=== PATIENT | female | born 1995 | race Caucasian/White ===

== ENCOUNTER 2017-04-22 00:13 | Inpatient (IN) | payer BC, OTHER ==
[~2017-04-22 00:13] MED LIST: BUTORPHANOL TARTRATE 2 MG/ML VIAL IV PRN; LIDOCAINE HCL 50 ML VIAL PERI PRN; ONDANSETRON HCL/PF 2 MG/ML VIAL IV PRN; OXYTOCIN/DEXTROSE 5%-WATER 30 UNITS/500 ML BAG IV ONE; RINGER'S SOLUTION,LACTATED 1,000 ML IV ONE
[2017-04-22 00:48] LABS: Hematocrit 36.6 % (37.0-47.0); Hemoglobin 12.4 gm/dL (12.5-16.0); Mean Cell Volume 86.1 fl (78-100); Mean Corpuscular Hemoglobin 29.2 pg (27-31); Mean Corpuscular Hgb Conc 33.9 g/dl (32-36); Mean Platelet Volume 12.2 fl (6.0-9.5); Neutrophil # 9.6 K/mm3 (1.3-6.0); Neutrophil % 71.6 % (42-75.0); Platelet Count 178 K/mm3 (150-450); Red Blood Count 4.25 M/mm3 (4.2-5.4); White Blood Count 13.5 K/mm3 (4.0-10.5)
[2017-04-22] MEDS: RINGER'S SOLUTION,LACTATED 1,000 ML IV PRN ×2 (00:51→20:57)
[2017-04-22 00:54] LABS: Urine Bilirubin Negative (NEGATIVE); Urine Blood Negative /ul (NEGATIVE); Urine Ketone Negative (NEGATIVE); Urine Nitrite Negative (NEGATIVE); Urine Protein Negative (NEGATIVE); Urine Specific Gravity <=1.005 SP.GR. (1.005-1.010); Urine Urobilinogen Normal (NORMAL)
[2017-04-22] MEDS: MISOPROSTOL 100 MCG TABLET VG PRN ×2 (00:55→05:01)
[2017-04-22 01:03] LABS: Cocaine Ur Negative (NEGATIVE); Urine Barbiturate Negative (NEGATIVE); Urine Benzodiazepines Negative (NEGATIVE); Urine Opiates Negative (NEGATIVE); Urine PCP Negative (NEGATIVE); Urine THC Negative (NEGATIVE)
[2017-04-22 01:10] LABS: Urine Appearance Clear; Urine Bacteria 1+; Urine Color Pale Yellow; Urine RBC 0-5 /hpf (0-5); Urine WBC 0-5 /hpf (0-5)
--- NOTE | 2017-04-22 10:26 | PN ---
Subjective - Date and Time Seen Date: 04/22/17 Subjective Narrative: labor note at 39 w, admitted for induction of labor at term with history of demise at 35 w. GBS negative. dilated to 1 cm in office. s/p cytotec x 2 overnight. cervix now: 2-3 cm, 50% and -3 FHR: reassuring. [place]: irregular contractions. bedside u/s: cephalic, posterior fundal placenta. Plan: will start pitocin for induction/augmentation. Serina Valentin MD Objective - Vitals Vitals: Last Vital Signs Temp 36.4 C L 05/26/16 17:16 Pulse Resp BP 110/62 04/07/17 21:45 Pulse Ox - Abnormal Lab Findings Abnormal Lab Findings: Abnormal Lab Results 04/22/17 04/22/17 Range/Units 00:30 00:40 WBC 13.5 H (4.0-10.5) K/mm3 Hgb 12.4 L (12.5-16.0) gm/dL Hct 36.6 L (37.0-47.0) % MPV 12.2 H (6.0-9.5) fl Immature Gran % (Auto) 0.50 H (0.001-0.429) % Immature Gran # (Auto) 0.07 H (0.000-0.0310) K/mm3 Lymphocytes % 18.2 L (20-51) % Neutrophils # 9.6 H (1.3-6.0) K/mm3 Monocytes # 1.1 H (0.0-1.0) k/mm3 Ur Leukocyte Esterase 100 H (NEGATIVE) /ul Urine Bacteria 1+ H (NONE)
[2017-04-23] MEDS: RINGER'S SOLUTION,LACTATED 1,000 ML IV PRN ×3 (03:20→13:18)
[2017-04-23] MEDS ORDERED: MISOPROSTOL 100 MCG TABLET VG ONE (08:52)
[2017-04-23] MEDS ORDERED: OXYTOCIN/DEXTROSE 5%-WATER 30 UNITS/500 ML BAG IV ONE ×2 (09:30→21:37)
[2017-04-23] MEDS ORDERED: NALOXONE HCL 1 MG/1 ML SYRG IV PRN (12:32)
[2017-04-23] MEDS ORDERED: ONDANSETRON HCL/PF 2 MG/ML VIAL IV PRN (12:32)
[2017-04-23] MEDS ORDERED: BUPIVACAINE HCL/0.9 % NACL/PF 250 ML EP PRN (12:32)
[2017-04-23] MEDS ORDERED: BUPIVACAINE HCL/PF 30 ML VIAL EP SCH (12:45)
--- NOTE | 2017-04-23 13:07 | OR ---
Anesthesia Procedure Note - Anesthesia Procedure Note Date of Service: 04/23/17 Narrative: Vital Signs - Last Taken Temp 37 C 04/23/17 13:02 Pulse 67 04/23/17 13:02 Resp 18 04/23/17 13:02 BP 124/65 04/23/17 13:02 Pulse Ox 98 04/23/17 13:02 04/23/17 13:06 ANESTHESIA PROCEDURE NOTE Date of Procedure: 04/23/2017. Time of procedure: 1240. Performed by: Connor Mcdaniel CRNA Licensed Investment Sales Assistant: None. Preprocedure diagnosis: Active labor. Post procedure diagnosis: Same. Procedure: Insertion of labor epidural. Indications: The patient is a 21 -year-old female in active labor requesting labor epidural for pain management. Findings: See below. Details of the procedure: The patient was placed in a sitting position. DuraPrep as well as Betadine swabs X3 was applied to the patient's back. Patient was then draped in a sterile fashion. Lidocaine 1% was infiltrated to the skin and subcutaneous tissues at the level of the L3-4 interspace. The epidural space was identified using a 18-gauge Tuohy needle with loss-of- resistance technique. Epidural catheter was inserted to a depth of 11 centimeters at skin. Negative test dose was elicited using 3 mL of 1.5% preservative-free lidocaine plus epinephrine 1 200,000. The epidural catheter was then taped and secured in place. A loading dose of 8 mL of 0.25% preservative-free bupivacaine was administered to the epidural catheter after negative aspiration for blood and CSF. EBL: Minimal. Fluids: N/A. Specimen: N/A. Post procedure condition: The patient tolerated the procedure well. No complications were noted. Thank you for this consultation. Connor Mcdaniel CRNA
--- NOTE | 2017-04-23 16:33 | PN ---
Progess Note - Interim Narrative: 04/23/17 16:31 Comfortable, feeling pressure SVE: /-3 FHTs: 130's, mod zita, no decels, + accels [place]: q2-5 min Continue increasing pitocin, anticipate
[2017-04-23] MEDS ORDERED: GLYCERIN/WITCH HAZEL LEAF 40 APPL BOX TP PRN (21:37)
[2017-04-23] MEDS ORDERED: oxyCODONE HCL/ACETAMINOPHEN 1 TAB TABLET PO PRN ×2 (21:37)
[2017-04-23] MEDS ORDERED: HYDROCORTISONE 30 APPL TUBE TP PRN (21:37)
[2017-04-23] MEDS ORDERED: SENNOSIDES 8.6 MG TABLET PO PRN (21:37)
[2017-04-23] MEDS ORDERED: BISACODYL 10 MG SUPP.RECT RC PRN (21:37)
[2017-04-23] MEDS ORDERED: BENZOCAINE/MENTHOL 81 SPRAY CAN TP PRN (21:37)
--- NOTE | 2017-04-23 21:42 | OR ---
Operative Report - Dictated Report Narrative: Spontaneous Vaginal Delivery Viable female with APGARS of 9 at 1 minute and 9 at 5 minutes. She delivered at 2118. Presentation was direct OA. A nuchal cord was noted and reduced over the baby' s head. The posterior arm delivered spontaneously followed by the anterior right shoulder with gentle downward traction. The remainder of the baby delivered easily and was placed on the maternal abdomen. The baby was dried and stimulated and the cord was clamped and cut after approximately 60 seconds. Weight: 7 pounds 1.4 ounces or 3215 g Placenta was delivered spontaneously and intact. Bilateral periurethral abrasions noted that were hemostatic without repair. Estimated blood loss: 100 ml Mother and baby tolerated delivery well. History for Definition: * The number of deliveries resulting in a live the patient experienced prior to current hospitalization * The previous delivery of live twins or any live multiple gestation is considered one live event. *If primagravida or nulliparous is documented select zero for the number of previous live births. Live Events: 1
[2017-04-23] MEDS ORDERED: FLU VACC QS2017-18(6MOS UP)/PF 60 MCG/0.5 ML SYRINGE IM ONE (22:11)
[2017-04-23] MEDS ORDERED: RHO(D) IMMUNE GLOBULIN 300 MCG DISP.SYRIN IM ONE (23:29)
[2017-04-24] MEDS ORDERED: RHO(D) IMMUNE GLOBULIN 300 MCG DISP.SYRIN IM ONE (01:28)
[2017-04-24] MEDS ORDERED: FLU VACC QS2017-18(6MOS UP)/PF 60 MCG/0.5 ML SYRINGE IM ONE (07:13)
[2017-04-24] MEDS: IBUPROFEN 800 MG TABLET PO PRN ×2 (07:18→19:32)
--- NOTE | 2017-04-24 08:44 | PN ---
Progess Note - Interim Narrative: 04/24/17 08:40 progress note Subjective: The patient is doing well. She is ambulating, voiding, tolerating by mouth. She has minimal pain and moderate lochia. Objective: General: No acute distress Abdomen: Soft, nontender, fundus is firm just below the umbilicus Extremities: minimal edema, nontender to palpation Assessment and plan: day 1 Feeding: breast Pain: Controlled with by mouth medication control: OCP Routine care.
[2017-04-24] MEDS: DOCUSATE SODIUM 100 MG CAPSULE PO SCH ×2 (09:03→21:06)
--- NOTE | 2017-04-25 07:51 | PN ---
Progess Note - Interim Narrative: 04/25/17 07:40 progress note Subjective: The patient is doing well. She is ambulating, voiding, tolerating by mouth. She has minimal pain and moderate lochia. Objective: General: No acute distress Abdomen: Soft, nontender, fundus is firm just below the umbilicus Extremities: minimal edema, nontender to palpation Assessment and plan: day 2 Feeding: Breast Pain: Controlled with by mouth medication control: OCPs Routine care.
[2017-04-25 08:20] VITALS: BP 135/69
[2017-04-25] MEDS: DOCUSATE SODIUM 100 MG CAPSULE PO SCH (10:01)
[2017-04-25] MEDS: IBUPROFEN 800 MG TABLET PO PRN (14:14)
== END 2017-04-25 14:30 | disposition home or self-care (01) | DRG 775 ==
LOC: OB 00:13
PROVIDERS: ADMIT Obstetrics & Gynecology; ATTEND Obstetrics & Gynecology
PROC: 10E0XZZ Delivery of Products of Conception, External Approach (ICD-10-PCS; principal; 2017-04-23)
PROC: 4A1HXCZ Monitoring of Products of Conception, Cardiac Rate, External Approach (ICD-10-PCS; 2017-04-23)
DX: O69.81X0 Labor and delivery complicated by cord around neck, without compression, not applicable or unspecified (principal); Z3A.39 39 weeks gestation of pregnancy; Z37.0 Single live birth; Z23 Encounter for immunization; Z87.59 Personal history of other complications of pregnancy, childbirth and the puerperium
CPT/HCPCS: 36415; 59025; 80307; 81001; 85025; 85460; 86850; 86900; 90686; G0008; J2790

== ENCOUNTER 2020-09-05 06:17 | Inpatient (IN) ==
[2020-09-05] MEDS ORDERED: RINGER'S SOLUTION,LACTATED 1,000 ML IV ONE (07:00)
[2020-09-05] MEDS ORDERED: BUTORPHANOL TARTRATE 2 MG/ML VIAL IV PRN ×2 (07:00)
[2020-09-05] MEDS ORDERED: ONDANSETRON 4 MG TAB.RAPDIS PO PRN (07:00)
[2020-09-05] MEDS ORDERED: LIDOCAINE HCL 50 ML VIAL PERI PRN (07:00)
[2020-09-05] MEDS ORDERED: OXYTOCIN/0.9 % SODIUM CHLORIDE 30 UNITS/500 ML BAG IV ONE (07:00)
[2020-09-05] MEDS: MISOPROSTOL 100 MCG TABLET VG PRN ×3 (07:09→22:46)
--- NOTE | 2020-09-05 08:20 | HP ---
Chief Complaint - Chief Complaint Date of Service: 09/05/20 Time of Service: 08:13 Chief Complaint: Medical IOL History of Present Illness: 24 year old at 37w 0d who presents to L&D for a medical IOL. She denies ctx, vb or lof. Fetus is active. Medical History (Last Reviewed 09/05/20 @ 08:16 by Regina Espinosa MD) History of chlamydia infection Onset Date: ~2010 History of stillbirth Onset Date: ~2014 35 weeks, placental insufficiency Surgical History: Surgical History (Last Reviewed 09/05/20 @ 08:16 by Regina Espinosa MD) No pertinent past surgical history Family History: Family History (Last Reviewed 09/05/20 @ 08:16 by Regina Espinosa MD) Mother Asthma Hypertension Father Alive and well Social History: (Last Reviewed 09/05/20 @ 08:16 by Regina Espinosa MD) Social History: adopted: No Marital status: Single household members: children current occupational status: employed current occupation: retail marketing coordinator current occupational exposures/hazards: No Highest level of school completed/degree received: high school graduate Service: No Tobacco: Smoking Status: Current every day smoker tobacco type: cigarettes Smoking cigarettes per day: 10 Years smoked: 7 Smoking pack-years: 3.50 Alcohol: alcohol intake: never Substance Use: substance use type: 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, THC last used 4-5 mos ago Dietary Habits: caffeine: Yes caffeine comment: 40 oz Type: carbonated beverages Review Of Systems (GEN) - Review of Systems Generalized/Overall Review: Present: No Symptoms Reported Misc: All systems neg except as marked Immunizations: IMMUNIZATION HX Immunizations Up to Date Yes History of Influenza Vaccine No Allergies/Adverse Reactions: Allergies Allergy/AdvReac Type Severity Reaction Status Date / Time No Known Allergies Allergy Verified 09/01/20 14:10 Home Medications: HOME MEDICATIONS vit,calcium no.40-iron fum 27 mg iron-folate no.1 1 mg tablet 1 tab PO DAILY #90 tab 02/16/20 [Last Taken Unknown] ferrous sulfate 325 mg (65 mg iron) tablet 325 mg PO DAILY 07/18/20 [Last Taken Unknown] Exam - Exam Vital Signs: Vital Signs - Last Taken Temp 36.7 C 09/05/20 06:20 Pulse 100 09/05/20 06:20 Resp 20 09/05/20 06:20 BP 125/79 09/05/20 06:20 Pulse Ox 96 09/05/20 06:20 Constitutional: Present: Alert, Oriented x3, Cooperative, No distress ENT Exam: Present: hearing grossly normal Eye Exam: bilateral eye: normal inspection Neck: Present: normal inspection Respiratory: Present: lungs clear, normal breath sounds, no respiratory distress Cardiovascular/Chest: Present: regular rate, rhythm Abdomen: Present: soft, nontender, nondistended /Rectal: Present: Exam deferred Extremity: Present: non-tender, no calf tenderness Skin Exam: Present: normal color, warm/dry, no cyanosis Neurologic: Present: alert, normal mood/affect, oriented x 3 Appearance: Present: appropriate appearance, appropriate insight, neat, no memory impairment Eye contact: Present: cooperative, good eye contact, normal speech Thoughts: Present: normal thought pattern Assessment/Plan - Narrative Narrative: 24 year old at 37w 0d 1. Medical IOL due to GHTN: the patient received one dose of misoprostol. 2. GBS negative: prophylaxis not indicated - Assessment/Plan (1) 37 weeks gestation of Problem: Acute (2) Gestational hypertension Problem: Acute (3) Normal Pap smear Problem: Acute (4) RhD negative Problem: Acute (5) History of stillbirth Problem: Acute
--- NOTE | 2020-09-05 16:59 | PN ---
Progess Note - Interim Date: 09/05/20 Time: 16:57 Narrative: 09/05/20 16:57 cvx /-3 Regular diet for dinner FHT cat 1 ctx q 1-2 minutes
[2020-09-06] MEDS: MISOPROSTOL 100 MCG TABLET VG PRN (02:51)
[2020-09-06] MEDS ORDERED: BUPIVACAINE HCL/0.9 % NACL/PF 250 ML EP PRN (07:08)
[2020-09-06] MEDS ORDERED: ONDANSETRON HCL/PF 2 MG/ML VIAL IV PRN (07:08)
[2020-09-06] MEDS ORDERED: NALOXONE HCL 1 MG/1 ML SYRG IV PRN (07:08)
[2020-09-06] MEDS ORDERED: fentaNYL CITRATE/PF 50 MCG/ML AMPUL IT SCH (07:15)
--- NOTE | 2020-09-06 08:19 | ANES ---
Post Anesthesia Discharge - Transfer of Care Transfer of Care handoff given to nurse: Yes - Anesthesia Post Op Note Anesthesia Post Op Note: Care transferred to OB RN
--- NOTE | 2020-09-06 08:19 | ANES ---
Anesthesia Pre Procedure Eval Vitals/Labs: Last Vital Signs Temp 36.5 C 09/06/20 03:44 Pulse 75 09/06/20 03:44 Resp 16 09/06/20 03:44 BP 125/56 09/06/20 03:44 Pulse Ox 100 09/06/20 03:44 HOME MEDICATIONS vit,calcium no.40-iron fum 27 mg iron-folate no.1 1 mg tablet 1 tab PO DAILY #90 tab 02/16/20 [Last Taken Unknown] ferrous sulfate 325 mg (65 mg iron) tablet 325 mg PO DAILY 07/18/20 [Last Taken Unknown] Allergies/Adverse Reactions: Allergies Allergy/AdvReac Type Severity Reaction Status Date / Time No Known Allergies Allergy Verified 09/01/20 14:10 - Planned Procedure Planned Procedure: medical induction for gestational [id number] Medication List Reviewed:: Yes Allergies Verified: Yes Medical History (Last Reviewed 09/06/20 @ 08:18 by Jeferson Schafer CRNA) History of chlamydia infection Onset Date: ~2010 History of stillbirth Onset Date: ~2014 35 weeks, placental insufficiency Surgical History (Last Reviewed 09/06/20 @ 08:18 by Jeferson Schafer CRNA) No pertinent past surgical history Family History (Last Reviewed 09/06/20 @ 08:18 by Jeferson Schafer CRNA) Mother Asthma Hypertension Father Alive and well - Family Anesthesia History Family History:: no untoward family reactions to anesthesia - Airway/Neck/Teeth Within Normal Limits:: Yes Teeth Condition: intact Neck Exam: full range of motion Mallampatti Score: 2 Thyromental (T-M) distance: > 6 cm Mandibulo Hyoid distance: > 3 cm - Respiratory Respiratory Physical: lungs clear Smoking Status: Current every day smoker Discussed smoking cessation including day of surgery: Yes Sleep Apnea currently treated: No Sleep Apnea by current assessment: No - Cardiovascular Tolerate Activity: Good Heart Sounds: S1 & S2, Regular - Gastrointestinal NPO since: MN - Anesthesia Assessment and Plan ASA Class: PS, II, E Anesthesia Type Plan: Epidural Planned difficult intubation/equipment available: No
--- NOTE | 2020-09-06 08:20 | ANES ---
Post Anesthesia Assessment - Vital Signs Vitals: Last Vital Signs Temp 36.5 C 09/06/20 03:44 Pulse 75 09/06/20 03:44 Resp 16 09/06/20 03:44 BP 125/56 09/06/20 03:44 Pulse Ox 100 09/06/20 03:44 Airway Patency: Normal - Mental Status Level Of Consciousness: Awake - Pain Level Pain Score: 0 - N/V Assessment Nausea/Vomiting Presence: None Dehydration:: No
--- NOTE | 2020-09-06 08:21 | ANES ---
Anesthesia Procedure Note Procedure Note: ANESTHESIA PROCEDURE NOTE Date of Procedure: 09/06/2020 Time of procedure: . Performed by: Tom Schafer CRNA Associate: None. Preprocedure diagnosis: Active labor. Post procedure diagnosis: Same. Procedure: Insertion of labor epidural. Indications: The patient is a 24-year-old multigravida female in active labor requesting labor epidural for pain management. Findings: See below. Details of the procedure: The patient was placed in a sitting position. Back was prepped with DuraPrep. Patient was then draped in a sterile fashion. Lidocaine 1% was infiltrated to the skin and subcutaneous tissues at the level of the L3 4 interspace. The epidural space was identified using a 18-gauge Tuohy needle with [id number] technique. 20 mcg fentanyl was given intrathecally using a 27 ga. spinal needle. Epidural catheter was inserted without difficulty. Negative test dose was elicited using 5 mL of 1.5% preservative-free lidocaine plus epinephrine 1 200,000. The epidural catheter was then taped and secured in place. EBL: Minimal. Fluids: N/A. Specimen: N/A. Post procedure condition: The patient tolerated the procedure well. No complications were noted. Thank you for this consultation. Laughlin CRNA
--- NOTE | 2020-09-06 08:30 | PN ---
Corbin Note - Interim Date: 09/06/20 Time: 08:22 Narrative: 09/06/20 08:22 Patient comfortable with epidural cvx /-2 AROM for a large amount of clear fluid FHT cat 1
[2020-09-06] MEDS: RINGER'S SOLUTION,LACTATED 1,000 ML IV PRN ×2 (09:02→17:01)
--- NOTE | 2020-09-07 00:45 | OR ---
Operative Report - Dictated Report Narrative: Date of delivery: 09/07/20 Time of delivery: 00:31 Gender: male weight: 2842 grams AGPARS: 03/30 Procedure: Description of the procedure: The patient is a 24 year old at 37w 2d who presented to L&D for a medical IOL due to GHTN. She progressed to complete d ilation. She delivered a viable male in direct OA presentation. A loose nuchal cord was noted and the baby was delivered through the loose nuchal cord. Cord clamping was delayed for 60 seconds due to vigorous . Cord blood was collected. The placenta delivered by expression and appeared intact. There were no lacerations. EBL: 100 mL Complications: none History for MU Definition: * The number of deliveries resulting in a live the patient experienced prior to current hospitalization * The previous delivery of live twins or any live multiple gestation is considered one live event. *If primagravida or nulliparous is documented select zero for the number of previous live births. Live Events: 2
[2020-09-07] MEDS ORDERED: BENZOCAINE/MENTHOL 81 SPRAY CAN TP PRN (01:40)
[2020-09-07] MEDS ORDERED: OXYTOCIN/0.9 % SODIUM CHLORIDE 30 UNITS/500 ML BAG IV ONE (01:40)
[2020-09-07] MEDS ORDERED: HYDROCORTISONE 30 APPL TUBE TP PRN (01:40)
[2020-09-07] MEDS ORDERED: BISACODYL 10 MG SUPP.RECT RC PRN (01:40)
[2020-09-07] MEDS ORDERED: GLYCERIN/WITCH HAZEL LEAF 40 APPL BOX TP PRN (01:40)
[2020-09-07] MEDS ORDERED: diphenhydrAMINE HCL 25 MG CAPSULE PO PRN (01:41)
[2020-09-07] MEDS ORDERED: SENNOSIDES 8.6 MG TABLET PO PRN (01:41)
[2020-09-07] MEDS ORDERED: HYDROcodone/ACETAMINOPHEN 1 EACH TABLET PO PRN (01:41)
[2020-09-07] MEDS: IBUPROFEN 800 MG TABLET PO PRN ×3 (02:09→18:23)
[2020-09-07] MEDS: HYDROcodone/ACETAMINOPHEN 1 EACH TABLET PO PRN ×4 (03:26→21:31)
[2020-09-07] MEDS: DOCUSATE SODIUM 100 MG CAPSULE PO SCH ×3 (08:41→21:32)
[2020-09-07] MEDS ORDERED: RHO(D) IMMUNE GLOBULIN 1,500 UNIT SYRINGE IM ONE (09:00)
[2020-09-08] MEDS: IBUPROFEN 800 MG TABLET PO PRN ×3 (00:44→16:55)
[2020-09-08] MEDS: HYDROcodone/ACETAMINOPHEN 1 EACH TABLET PO PRN ×3 (00:45→16:54)
--- NOTE | 2020-09-08 07:54 | PN ---
Subjective - Date and Time Seen Date: 09/08/20 Time: 07:51 Subjective Narrative: Patient without complaints Objective Objective Narrative: See vital signs - Review of Systems Generalized/Overall Review: Reports: No Symptoms Reported Endocrine: Reports: No Symptoms Reported - Vitals Vitals: Last Vital Signs Temp 36.3 C 09/08/20 01:25 Pulse 73 09/08/20 01:25 Resp 16 09/08/20 01:25 BP 124/59 09/08/20 01:25 Pulse Ox 99 09/08/20 01:25 - Exam Constitutional: Present: Alert, Oriented x3, Cooperative, No distress ENT Exam: Present: hearing grossly normal Abdomen: Present: soft, nontender, nondistended - fundus is firm Extremity: Present: non-tender, no calf tenderness Skin Exam: Present: normal color, warm/dry, no cyanosis Neurologic: Present: alert, normal mood/affect, oriented x 3 Appearance: Present: appropriate appearance, appropriate insight, neat, no memory impairment Eye contact: Present: cooperative, good eye contact, normal speech Thoughts: Present: normal thought pattern Cauti Physician Documentation - Urinary Catheter Management Urethral (Jason) Urethral Indwelling: No Date of Insertion: 09/06/20 Time of Insertion: 09:00 Date of Removal: 09/07/20 Time of Removal: 00:10 Assessment/Plan Plan Narrative: PPD 1 s/p Doing well Discharge tomorrow - Problems/Diagnosis (1) 37 weeks gestation of Problem: Acute (2) Gestational hypertension Problem: Acute Qualifiers: Trimester: third trimester Qualified Code(s): O13.3 - Gestational [-induced] hypertension without significant proteinuria, third trimester (3) Normal Pap smear Problem: Acute (4) RhD negative Problem: Acute (5) History of stillbirth Problem: Acute
[2020-09-08] MEDS: DOCUSATE SODIUM 100 MG CAPSULE PO SCH ×2 (10:41→20:17)
--- NOTE | 2020-09-09 06:01 | PN ---
Subjective - Date and Time Seen Date: 09/09/20 Time: 05:59 Subjective Narrative: Patient without complaints Objective Objective Narrative: See vital signs - Review of Systems Generalized/Overall Review: Reports: No Symptoms Reported Endocrine: Reports: No Symptoms Reported - Vitals Vitals: Last Vital Signs Temp 36.9 C 09/09/20 04:25 Pulse 84 09/09/20 04:25 Resp 20 09/09/20 04:25 BP 128/60 09/09/20 04:25 Pulse Ox 97 09/09/20 04:25 - Exam Constitutional: Present: Alert, Oriented x3, Cooperative, No distress ENT Exam: Present: hearing grossly normal Neck: Present: normal inspection Abdomen: Present: soft, nontender, nondistended - fundus is firm Extremity: Present: non-tender, no calf tenderness Skin Exam: Present: normal color, warm/dry, no cyanosis Neurologic: Present: alert, normal mood/affect, oriented x 3 Appearance: Present: appropriate appearance, appropriate insight, neat, no memory impairment Eye contact: Present: cooperative, good eye contact, normal speech Thoughts: Present: normal thought pattern Cauti Physician Documentation - Urinary Catheter Management Urethral (Jason) Urethral Indwelling: No Date of Insertion: 09/06/20 Time of Insertion: 09:00 Date of Removal: 09/07/20 Time of Removal: 00:10 Assessment/Plan Plan Narrative: PPD 2 s/p Doing well Discharge home - Problems/Diagnosis (1) 37 weeks gestation of Problem: Acute (2) Gestational hypertension Problem: Acute Qualifiers: Trimester: third trimester Qualified Code(s): O13.3 - Gestational [-induced] hypertension without significant proteinuria, third trimester (3) Normal Pap smear Problem: Acute (4) RhD negative Problem: Acute (5) History of stillbirth Problem: Acute
--- NOTE | 2020-09-09 06:03 | DS ---
OB Discharge Summary (1) 37 weeks gestation of Status: Acute (2) Gestational hypertension Status: Acute Qualifiers: Trimester: third trimester Qualified Code(s): O13.3 - Gestational [-induced] hypertension without significant proteinuria, third trimester (3) Normal Pap smear Status: Acute (4) RhD negative Status: Acute (5) History of stillbirth Status: Acute Delivery Date: 09/07/20 Delivery Time: 00:31 :: 5 Para:: 4 Gestational weeks:: 37 Gestational days:: 2 Intrapartum Procedures: Spontaneous Vaginal Delivery, Anesthesia - Epidural Procedures: None /OP Complications: GHTN Discharge Diagnosis: Term -Delivered, Gestational Hypertension - Discharge Information Date of Discharge: 09/09/20 Hospital Course: The patient was admitted for medical IOL for GHTN. She delivered without complications. course was uncomplicated. Discharge Location: Home Disposition: Home self-care Referrals: Bobby Abreu MD [Primary Care Provider] - Activity on Discharge:: Activity as tolerated, Pelvic Rest Discharge Diet: General/regular food Complete Home Medications List: Complete Home Medication List: vit,calcium no.40-iron fum 27 mg iron-folate no.1 1 mg tablet 1 tab PO DAILY #90 tab 02/16/20 - Plan Discharge to:: Home Comment:: Routine Discharge Instructions Follow up in office in:: 6 weeks - Information Weight (Grams): 2,842 Infant Sex: Male Score 1 min: 9 Score 5 min: 9 Complications: None
[2020-09-09 06:49] VITALS: BP 143/63
[2020-09-09] MEDS: DOCUSATE SODIUM 100 MG CAPSULE PO SCH (10:06)
== END 2020-09-09 10:30 | disposition home or self-care (01) | DRG 807 ==
LOC: OB 06:17
PROVIDERS: ADMIT Obstetrics & Gynecology; ATTEND Obstetrics & Gynecology